=== PATIENT | female | born 1990 | race Caucasian/White ===

== ENCOUNTER 2023-01-28 12:33 | Outpatient (CLI) | payer MEDICAID, SELFPAY ==
--- NOTE | 2023-01-28 13:00 | CRLHL7_ITS ---
For Patients: As a result of the Century Cures Act, medical imaging exams and procedure reports are released immediately into your electronic medical record. You may view this report before your referring provider. If you have questions, please contact your health care provider. INDICATION: Evaluate anatomy. COMPARISON: 11/12/2022 TECHNIQUE: Real time ferraro scale imaging of the fetus was performed as well as color Doppler analysis of the umbilical vessels. FINDINGS: Sonographic imaging demonstrates a single living intrauterine gestation. Fetus demonstrates a regular cardiac rate of 142 beats per minute. Fetus has a variable position. The placenta lies posteriorly without evidence of placenta previa. The edge of the placenta is located 3.0 cm from the internal cervical os. Amniotic fluid volume appears normal. Single deepest vertical pocket: 4.6 cm. The cervix is closed and measures 4.0 cm in length. The composite ultrasound gestational age is calculated at 20 weeks 5 days with an estimated sonographic due date of 06/12/2023. The estimated weight is 367 grams which lies at the 48th %. The following biometric measurements were obtained: Biparietal diameter: 4.6 cm/19 weeks 6 days 21st% Head circumference: 17.5 cm/20 weeks 0 days 18th% Abdominal circumference: 15.8 cm/20 weeks 6 days 56th% Femur length: 3.4 cm/20 weeks 40 40th% The HC/AC ratio measures: 1.11 range (1.06-1.25) On anatomic survey, there is a normal appearance of the cerebral ventricles, cavum septi pellucidi, cisterna magna and cerebellum. The nose, lips, and facial profile appear normal. The cervical, thoracic and lumbar spine are well visualized and appear normal. Incomplete visualization of the heart structures due to position. The diaphragm and stomach appear normal. The kidneys and bladder also appear normal. There is a normal three-vessel cord and cord insertion site. The four extremities appear normal. IMPRESSION: Concordance of clinical and sonographic dating. Incomplete visualization of the cardiac structures due to position. Remainder of the anatomic survey is normal. Short-term follow-up recommended. Dictated by Romain Weldon MD @ 01/28/2023 2:45:22 PM (Electronically Signed)
== END 2023-01-28 12:34 | disposition home or self-care (01) ==
LOC: US 12:34
PROVIDERS: Visit Provider Registered Nurse
DX: Z34.92 Encounter for supervision of normal pregnancy, unspecified, second trimester (principal); Z3A.20 20 weeks gestation of pregnancy
CPT/HCPCS: 76805

== ENCOUNTER 2023-02-23 08:59 | Outpatient (CLI) | payer MEDICAID, SELFPAY ==
--- NOTE | 2023-02-23 09:15 | CRLHL7_ITS ---
For Patients: As a result of the Century Cures Act, medical imaging exams and procedure reports are released immediately into your electronic medical record. You may view this report before your referring provider. If you have questions, please contact your health care provider. INDICATION: Follow-up heart views COMPARISON: 01/28/2023 TECHNIQUE: Real time ferraro scale imaging of the fetus was performed. FINDINGS: Sonographic imaging demonstrates a single living intrauterine gestation. Fetus demonstrates a regular cardiac rate of 161 beats per minute. Fetus has a breech position. The placenta lies posteriorly. Amniotic fluid volume appears normal. Single deepest vertical pocket: 6.7 cm. There is a normal four-chamber heart view and the left and right ventricular outflow tracts appear normal. IMPRESSION: Normal heart views. Dictated by Romain Weldon MD @ 02/23/2023 10:30:12 AM (Electronically Signed)
== END 2023-02-23 09:00 | disposition home or self-care (01) ==
PROVIDERS: Visit Provider Obstetrics & Gynecology
DX: O35.BXX0 Maternal care for other (suspected) fetal abnormality and damage, fetal cardiac anomalies, not applicable or unspecified (principal)
CPT/HCPCS: 76816

== ENCOUNTER 2023-03-23 09:16 | Outpatient (CLI) | payer MEDICAID, SELFPAY | END 2023-03-23 09:17 | disposition home or self-care (01) | PROVIDERS: Visit Provider Obstetrics & Gynecology | DX: Z34.90 Encounter for supervision of normal pregnancy, unspecified, unspecified trimester (principal) | CPT/HCPCS: 86592 ==

== ENCOUNTER 2023-05-04 09:43 | Outpatient (CLI) | payer MEDICAID, SELFPAY | END 2023-05-04 09:44 | disposition home or self-care (01) | LOC: NFLDREF 05-05 11:36 | PROVIDERS: Visit Provider Obstetrics & Gynecology | DX: Z34.90 Encounter for supervision of normal pregnancy, unspecified, unspecified trimester (principal) | CPT/HCPCS: 82728 ==

== ENCOUNTER 2023-05-16 09:16 | Outpatient (CLI) | payer MEDICAID, SELFPAY | END 2023-05-16 09:17 | disposition home or self-care (01) | LOC: NFLDREF 05-18 07:28 | PROVIDERS: Visit Provider Obstetrics & Gynecology | DX: Z34.92 Encounter for supervision of normal pregnancy, unspecified, second trimester (principal) | CPT/HCPCS: 87081; 87653 ==

== ENCOUNTER 2023-06-05 23:44 | Outpatient (CLI) | payer MEDICAID, SELFPAY ==
[2023-06-06 00:10] VITALS: BP 113/57; PULSE 91; RESP 18; TEMP 36.7
[2023-06-06 00:47] LABS: Appearance Urine Clear (Clear); Bilirubin Urine Negative (Negative); Blood Urine Negative (Negative); Color Urine Yellow (Yellow); Glucose Urine Trace (Negative); Ketones Urine Negative (Negative); Leukocyte Esterase Urine Negative (Negative); Nitrite Urine Negative (Negative); Protein Urine Negative (Negative); Specific Gravity Urine 1.015 (1.000-1.030); Urobilinogen Urine 0.2 (0.2-1.0); pH Urine 6.5 (5.0-8.5)
[2023-06-06 00:50] LABS: Clue Cells No Clue Cells Seen (None Seen); Trichomonas No Trichomonas Seen (None Seen); Yeast No Yeast Seen (None Seen)
--- NOTE | 2023-06-06 19:55 | PC.OBNST ---
NST Note NST Note Start: 06/06/23 01:23 Freq: Status: Active Protocol: Document 06/06/23 01:23 RAFAELA (Rec: 06/06/23 01: RAFAELA [id number]) NST Note 4 Para (# of births) 2 EDC 06/13/23 Gestational Age In Weeks & Days 39 Weeks & 0 Days Patient Presented with Complaint(s) of Contractions/cramping Reactive Yes RN Yony Garcia, RN Date 06/06/23 Reactive Yes RN Catherine Leos RN Date 06/13/23 OB NST charge Yes Complete NST Note via Write Note Yes The provider's electronic signature indicates the NST is reactive/appropriate for gestational age. *Note to provider: If an addendum is required, open the patient's chart and click on the note under the Nurse/Allied Health tab.
== END 2023-06-06 00:54 | disposition home or self-care (01) ==
LOC: OB OUT 23:46 → OB 23:46
PROVIDERS: Visit Provider Obstetrics & Gynecology
DX: O47.1 False labor at or after 37 completed weeks of gestation (principal); Z3A.38 38 weeks gestation of pregnancy
CPT/HCPCS: 59025; 81003; 87210; 99213

== ENCOUNTER 2023-06-08 23:17 | Inpatient (IN) | payer MEDICAID, SELFPAY ==
[2023-06-08] MEDS: AMPICILLIN 2 GM in 0.9 % SODIUM CHLORIDE Mini-bag 100 ML IVPB (23:21)
[2023-06-08] MEDS: LACTATED RINGERS 1000 ML 1,000 ML 900 ML IV (23:22)
[2023-06-08 23:33] VITALS: BP 137/82; PULSE 97
[2023-06-08 23:42] VITALS: BMI 26.6
--- NOTE | 2023-06-08 23:49 | P.OBHP_ITS ---
OB - H&P: HPI Labor/Induction History of Present Illness Time Seen by Provider: 23:49 Date Seen: 06/08/23 Chief Complaint: The patient is a 32 year old 4 para 2 at 39 weeks gestation by LMP, who presents with spontaneous onset of labor. course is complicated by gestational anemia. Patient notes onset of regular/painful uterine contractions at 2100. At present, they are occurring every few minutes and rated as 10 in severity. She was seen i n the clinic this afternoon, found to be 3/80/0 and is status post membrane sweeping. She denies any vaginal bleeding or leaking of fluid. Endorses active movement. She is otherwise feeling well, ROS negative. Chief complaint: maternity Narrative: Chong Brooks is a 32 year old female Specific Issues/Plans [id number] : Gil. Sons: Aaron Hobbs. Baby: Boy. 1. Hx abnormal paps. Ascus and HPV- in 2012, 2018, ASCUS and HPV+ 2016, NIL and HPV+ 2017, NIL HPV-2020 Colposcopy CIN1 11/2017, Benign 06/2019 Needs pap PP 2. Hx migraines. Denies migraines in but has had increase in headaches. 3. Rubella non-immune Recommend vaccine pp 4. Anemia, with Hb 10.7 at 28 weeks. * Begin supplemental iron QOD * Repeat Hbg 34 weeks 05/04/23: 10.7 * Reported that she was often forgetting to take her iron supplement on 05/04/23. COVID: Declined Flu: Declined TDAP: Declined RSV: Declined 32wk mental health: No acute concerns H&P: Dr. Shi on 05/23/2023 History of Present Dating criteria: based on LMP care: good care Ultrasounds: normal 1st trimester US and normal mid trimester US Labs Blood type: B (+) positive Meds Home Medications and Allergies Home Medications Medication Instructions Recorded Confirmed Type prenat.vits,vahe,srq-nwqk-aaqyf 1 tab PO QDAY 11/12/22 06/08/23 History calcium carbonate 200 mg calcium 200 mg PO BID 03/23/23 06/08/23 History (500 mg) chewable tablet (Tums) ferrous sulfate 325 mg (65 mg 325 mg PO Q OTHER DAY 04/20/23 06/08/23 History iron) tablet (iron) Allergies Allergy/AdvReac Type Severity Reaction Status Date / Time No Known Drug Allergies Allergy Verified 06/08/23 23:23 OB - H&P: Exam Physical Exam: Vital signs: Pulse BP 97 137/82 06/08/23 23:33 06/08/23 23:33 Narrative: Physical exam: General: No acute distress Psych: Alert and oriented x3, full affect. Abdomen: Gravid. Otherwise soft and nontender. EFW 3500g. heart rate: Reactive NST. Baseline of 140 beats per minute, moderate variability, accelerations present, decelerations absent. Cervix: 5-6cm by RN report Presentation: Cephalic by Alfredo[facility] OB - Problem Based A/P Additional Plan (1) 39 weeks gestation of : Status: Acute (2) Anemia affecting : Status: Acute Plan Ms. Brooks is a 32yo at 39w2d GA admitted for spontaneous onset of labor. course complicated by gestational anemia and GBS positivity. - Admit to labor and deliver, proceed with expectant management at this time but could augment following adequate treatment of GBS - Start ampicillin for GBS prophylaxis - Blood type B positive - Repeat hemoglobin and type and screen on admission given gestational anemia with suboptimal compliance on iron
[2023-06-09] VITALS (58 sets, daily range): BP systolic 106–148; BP diastolic 53–88; PULSE 70–146; RESP 16–18; TEMP 36.6–37.3; O2SAT 97–100
[2023-06-09] MEDS: LIDOCAINE 2% (PF) 5 ML VIAL EPIDURAL (00:17)
[2023-06-09] MEDS: ROPIVACAINE 0.2% 100 ml 100 ML 12 MG EPIDURAL (00:17)
[2023-06-09] MEDS: ROPIVACAINE 0.2 % PF 10 ML INJ 20 MG EPIDURAL (00:17)
--- NOTE | 2023-06-09 00:29 | P.ANBPRC_ITS ---
[facility] Medical History Migraines ?G43.909 - Migraine, unspecified, not intractable, without status migrainosus (ICD-10) History of miscarriage (08/2019) ?Z87.59 - Personal history of other complications of , childbirth and the puerperium (ICD-10) History of vaginal delivery History of abnormal cervical Pap smear ?Z87.42 - Personal history of other diseases of the female genital tract (ICD-10) Surgical History History of umbilical hernia repair ?Z98.890 - Other specified postprocedural states (ICD-10) ?Z87.19 - Personal history of other diseases of the digestive system (ICD-10) History of placement of ear tubes ?Z96.22 - Myringotomy tube(s) status (ICD-10) History of colposcopy (11/21/17) ?Z98.890 - Other specified postprocedural states (ICD-10) Family History Mother Breast cancer Skin cancer Thyroid cancer Brother Diabetes Drug dependence Sister Gestational diabetes Preeclampsia Other Family history of breast cancer in first degree relative Social History What is your current living situation?: I presently have a place to live Problems where you live: no known problems In the past 12 months, utilities in danger of being shut off: no In past 12 months, lack of transportation kept you from medical appts, meetings, work, or getting things needed for daily living: no In the past 12 mos, have been you worried that your food would run out before you had money to buy more?: never true In the past 12 mos, the food you bought just didn't last and you didn't have money to buy more?: never true Physical activity type: walking and bicycling How many days of moderate to strenuous exercise, like a brisk walk, did you do in the last 7 days: 4 Smoking Status: Never smoker Second hand tobacco smoke exposure: Yes (as a child only) Non-prescribed substance use: denies use Caffeine: Yes (occasional) How often does anyone, including family, friends and others, physically hurt you : never How often does anyone, including family, friends and others, insult or talk down to you: never How often does anyone, including family, friends and others, threaten you with harm: never How often does anyone, including family, friends and others, scream or curse at you: never Little interest or pleasure in doing things: not at all Feeling down, depressed, or hopeless: not at all Meds Home Medications and Allergies Home Medications Medication Instructions Recorded Confirmed Type prenat.vits,vahe,bus-penj-uadol 1 tab PO QDAY 11/12/22 06/08/23 History calcium carbonate 200 mg calcium 200 mg PO BID 03/23/23 06/08/23 History (500 mg) chewable tablet (Tums) ferrous sulfate 325 mg (65 mg 325 mg PO Q OTHER DAY 04/20/23 06/08/23 History iron) tablet (iron) Allergies Allergy/AdvReac Type Severity Reaction Status Date / Time No Known Drug Allergies Allergy Verified 06/08/23 23:23 Results Vital Signs Vital Signs: Last Vital Signs Pulse 111 H 06/09/23 00:28 BP 126/73 06/09/23 00:28 Pulse Ox 100 06/09/23 00:27 Weight: 65.998 kg Height: 157.48 cm Anesthesia Procedures Epidural Insertion Patient Location: OB Start Time: 23:45 Stop Time: 00:29 Start Date: 06/09/23 Stop Date: 06/09/23 Reason for Block: procedure for pain Patient Position: sitting Performed By: Ever Valentine Preanesthetic Checklist: IV checked, risks and benefits discussed, surgical consent, monitors and equipment checked, pre-op evaluation, timeout performed and anesthesia consent Prep: chlorhexidine gluconate Monitoring: blood pressure monitoring, continuous pulse oximetry and heart rate Approach: midline Vertebral Space: lumbar (1-5) Epidural Technique: MARIA ELENA air Needle Type: Tuohy needle Injection Technique: continuous catheter Needle gauge: 17 Needle Length (cm): 10 cm Needle Insertion Depth (cm): 6 Catheter Gauge: 19 Catheter Type: multi-orifice Catheter at skin depth (cm): 12 Test Dose Result: negative and lidocaine 1.5% with epinephrine 1 to 200,000
[2023-06-09] MEDS: LACTATED RINGERS 1000 ML 1,000 ML 125 ML IV (00:59)
[2023-06-09] MEDS: AMPICILLIN 1 GM in 0.9 % SODIUM CHLORIDE Mini-bag 100 ML IVPB (03:13)
--- NOTE | 2023-06-09 03:44 | PM.OBPNL ---
Subjective Time Seen by Provider: 03:44 Date Seen: 06/09/23 Narrative: Ms. Brooks is a 32yo at 39w3d GA who presented in spontaneous labor. course complicated by gestational anemia and GBS positivity. She is now adequately treated with ampicillin. She has made progress from 5-6cm to 890/0 by RN report. S/p epidural placement and has been resting comfortably. Interested in amniotomy to augment labor. Objective Exam: General: Alert and oriented, in no acute distress Cervix: /0 FHR: Category 1, baseline 140bpm with moderate variability and no decelerations Vital Signs: Last Vital Signs Pulse 97 06/09/23 03:31 BP 129/78 06/09/23 03:31 Pulse Ox 100 06/09/23 00:27 Plan Plan: Ms. Brooks is a 32yo admitted for JESSIKA. was complicated by anemia and GBS positivity. - After discussion of risks, benefits and alternatives, AROM performed for return of clear fluid - Anticipate next exam in 2-4 hours, sooner as clinically indicated - On review of EMR, previous Hgb/T&S has yet to be drawn - will notify phlebotomy to request these - BT B+ - Continue ampicillin for GBS, now adequately treated
[2023-06-09 04:25] LABS: HGB WITH REFLEX TO FERRITIN 11.3 (12.0-16.0)
[2023-06-09] MEDS: OXYTOCIN 30 unit/500 ML in NS 30 UNIT/500 ML BAG 300 UNIT IVPB (05:03)
[2023-06-09] MEDS: lidocaine HCL 2 % JELLY (TOP) STERILE 6 ML TOPICAL (05:13)
[2023-06-09] MEDS: LIDOCAINE 1 % PF 30 ML INJECTION (05:14)
[2023-06-09] MEDS: miSOPROStoL 800 MCG/4 TABLET PR (05:36)
--- NOTE | 2023-06-09 05:55 | W.PM.VAGDEL1 ---
Procedure Delivery date: 06/09/23 Procedure Done: Global Procedure Details: Normal spontaneous vaginal delivery First degree perineal repair Intrapartal Events: Labor Augmentation Delivery augmentation: rupture of membranes Delivery monitor: external FHT Route of delivery: Laceration description: Perineal - 1st Degree Delivery repair: Vicryl Estimated blood loss (mL): 392 Anesthesia type: Epidural (1% lidocaine 8mL prior to repair) Disposition: floor Complications: None Narrative: Ms. Brooks is a 32yo at 39w3d GA admitted for spontaneous onset of labor.? heart tones on admission were category 1. Her was otherwise complicated by anemia and GBS positivity. Her labor was managed expectantly until adequate treatment of GBS was achieved. It was then augmented with AROM with return of clear fluid. Epidural was utilized for pain management. heart tones during active labor were category 1 and 2 with intermittent variable decelerations. She was complete at 0448 and expulsive efforts began. She had an at 0500. Baby delivered OA, restituted WILLEM and the anterior and posterior shoulders delivered without difficulty. The cord was clamped and cut after delayed cord clamping. Active management of the third stage was initiated with pitocin and gentle traction on the umbilical cord, and the placenta delivered spontaneous and intact at 0508. Cord gases sent: no Cord blood sent for ABO: no Perineum and vagina were inspected, and the following lacerations were noted: first degree perineal laceration with very shallow extension down posterior perineum. Repair was performed in the usual fashion with 3-0 vicryl under existing epidural analgesia and with 1% lidocaine. Mild intermittent lower uterine segment atony was noted during repair, which improved with fundal massage. At completion of repair, bimanual massage was conducted and a small volume of clots was swept from the lower uterine segment. Entire vagina and cervix were examined with no additional repair. Prophylactic cytotec 800mcg was administered rectally. Excellent tone and hemostasis was again affirmed. Total QBL was 392mL. All counts were correct. Mother and infant in stable condition following the .? [place] Infant Gender: Male presentation: vertex Placental Delivery Description: Spontaneous Cord Description: 3 Vessels total score - 1 minute: 8 total score - 5 minute: 9
[2023-06-09 07:06] LABS: Hematocrit 35.4 % (33.0-51.0); Hemoglobin* 11.6 gm/dL (12.0-16.0); Mean Corpuscular HGB Conc 33 gm/dL (32-36); Mean Corpuscular Hemoglobin 27 pg (26-34); Mean Corpuscular Volume 82 fL (80-100); Platelet Count* 128 K/uL (140-440); White Blood Count* 15.08 K/uL (4.50-11.00)
[2023-06-09] MEDS: IBUPROFEN 600 MG TABLET PO ×3 (07:14→19:05)
[2023-06-09 07:16] LABS: Alanine Aminotransferase* 14 U/L (4-35); Aspartate Amino Transferase* 24 U/L (12-35); Blood Urea Nitrogen* 7 mg/dL (5-24); Creatinine* 0.5 mg/dL (0.5-1.5); Est. Creatinine Clearance* 128.94; Estimated Glomerular Filt Rate 129 ml/min
[2023-06-09 07:34] LABS: Slide Review Reflex No
[2023-06-09] MEDS: ACETAMINOPHEN 500 MG TABLET 1000 MG PO ×3 (09:54→22:37)
[2023-06-09] MEDS: FERROUS SULFATE 325 MG TABLET PO (09:54)
[2023-06-09] MEDS: DOCUSATE SODIUM 100 MG CAPSULE PO (09:54)
[2023-06-10] MEDS: IBUPROFEN 600 MG TABLET PO ×2 (02:20→07:59)
[2023-06-10 05:00] VITALS: BP 133/84; PULSE 85; RESP 18; TEMP 36.8; O2SAT 97
[2023-06-10] MEDS: ACETAMINOPHEN 500 MG TABLET 1000 MG PO ×2 (05:03→11:08)
[2023-06-10 06:41] LABS: Hemoglobin* 11.2 gm/dL (12.0-16.0)
[2023-06-10 07:42] VITALS: BP 138/88; PULSE 80; RESP 18; TEMP 36.8; O2SAT 97
[2023-06-10] MEDS: FERROUS SULFATE 325 MG TABLET PO (07:59)
[2023-06-10] MEDS: DOCUSATE SODIUM 100 MG CAPSULE PO (08:00)
[2023-06-10 08:40] VITALS: BP 136/88; PULSE 82; RESP 18; O2SAT 98
--- NOTE | 2023-06-10 08:52 | PM.OBDSVD1 ---
DS: Providers Provider Date Seen: 06/10/23 Date of admission: 06/08/23 23:17 Primary care physician: Not a Local Provider Admitting Clinician: Shea Carver MD Attending Physician on discharge: Roni Oliveira CNM Date of Discharge: 06/10/23 DS: Diagnosis Discharge Diagnosis (1) care and examination immediately after delivery: Status: Acute (2) Lactating mother: Status: Acute (3) Gestational hypertension: Status: Acute Exam Narrative: Exam Narrative: GENERAL APPEARANCE: ?normal affect, alert, no distress MOOD: ?appropriate HEENT: normocephalic, neck supple, full ROM CHEST: ?Symmetrical chest wall movement. ?Normal respiratory effort. ?Clear to auscultation HEART: ?regular rate and rhythm ABDOMEN: ?soft, non-tender. Uterine fundus is firm, at Umbilicus, Midline and is appropriate for the stage of recovery. ?Bowel sounds present. PERINEUM: ?mild edema of the perineum, there is a 1st degree laceration that is healing well. EXTREMITIES: ?normal and no edema Const: Vital Signs, click to edit/add: Vital Signs - 24 hr 06/09/23 10:35 06/09/23 15:16 06/09/23 20:16 Temperature 97.8 F 97.9 F 97.9 F Pulse Rate [Pulse Oximeter] 84 70 87 Respiratory Rate 16 16 18 Blood Pressure [Ri ght Arm] 136/88 139/81 125/78 Pulse Oximetry 97 97 98 Oxygen Delivery Me thod Room Air Room Air 06/09/23 23:08 06/10/23 05:00 06/10/23 07:42 Temperature 98.0 F 98.2 F 98.2 F Pulse Rate [Pulse Oximeter] 82 85 80 Respiratory Rate 18 18 18 Blood Pressure [Ri ght Arm] 136/81 133/84 138/88 Pulse Oximetry 97 97 97 Oxygen Delivery Me thod Room Air Room Air 06/10/23 08:40 Temperature Pulse Rate [Pulse Oximeter] 82 Respiratory Rate 18 Blood Pressure [Ri ght Arm] 136/88 Pulse Oximetry 98 Oxygen Delivery Me thod Room Air Documenting provider has reviewed patient's vital signs: yes OB - DS: Summary Hospital Course Hospital Course: Chong is a 32 y.o. who was admitted to [facility] for spontaneous labor. ?She had an uncomplicated NVD. During labor she was diagnosed with Gestational ?The patient feels well. ?The pain is well controlled with current medications. ?She has no new complaints. ?She is breast feeding and reports things are going well.? the patient has done well.? Vitals have been stable.?She was diagnosed with gestational hypertension during this stay, blood pressures since delivery have been stable. She has remained afebrile.? Has a good appetite, is tolerating a general diet. ?She is voiding without difficulty.? She is passing gas and has not had a bowel movement.? She is ambulating and denies any dizziness.? Has Small amount of rubra lochia. ?She is planning partner vasectomy for prevention. Peripartum Data Infant delivery method: Vaginal Laceration description: Perineal - 1st Degree complications: none [place] Gender: Male Discharge Plan: Home Status at Discharge Functional status at discharge: independent ambulation Overall status at discharge: patient is progressing back to baseline Time Spent with Patient Time attestation: Total time spent providing and/or coordinating discharge services: Time spent: Less than 30 minutes Discharge Plan Discharge Disposition: Home, Self-Care Date of Admission: 06/08/23 23:17 Attending Provider on Discharge: Roni Oliveira Primary Care Provider: Provider,Not a Local Condition: Stable Anticipated Discharge Date/Time: 06/10/23 12:00 Discharge Medications: New acetaminophen 500 mg Tablet 1,000 mg PO Q6H PRNQty: 0 0RF docusate sodium 100 mg Capsule 100 mg PO DAILY Qty: 60 2RF ibuprofen 600 mg Tablet 600 mg PO Q6H PRNQty: 90 0RF Continued calcium carbonate [Tums] 200 mg calcium (500 mg) tablet,chewable 200 mg PO BID prenat.vits,vahe,pme-vpup-xsynu Tablet 1 tab PO QDAY ferrous sulfate [iron] 325 mg (65 mg iron) tablet 325 mg PO Q OTHER DAY Discharge Orders: Discharge Order (Routine); Ordered 06/10/23 Ordered By: Roni Oliveira Patient Education: OB Over the Counter Medication Information, OB Vaginal/Breast Feeding Additional Instructions: Discharge instructions were reviewed with the patient including signs and symptoms of infection and home going medications Nothing vaginally for 6 weeks: no tampons or intercourse Do not drive while taking narcotic pain medication(s) Off Work or School for 6 weeks [facility] for a BP check?06/14/22 Call with BP greater than or equal to 160/110 2-week visit: discuss infant feeding concerns, review control options and screen for anxiety/depression. 6-week visit for an annual exam. consultation services are available to all mothers and babies for the first year after delivery.? To make an appointment, please call [phone]. Activity Level: Activity as Tolerated Discharge Diet: Regular Follow Up Appointments: Provider,Not a Local [Primary Care Provider] - [facility] [Provider Group] Forms: [employer] Info Instructions
--- NOTE | 2023-06-10 09:10 | PC.NURSE ---
Patient non-immune for rubella, MMR vaccine indicated per protocol. Patient verbalized that she is declining the MMR vaccine as she reports that she is sensitive and has reactions to vaccine. Vaccine not given per patient declination.
== END 2023-06-10 11:15 | disposition home or self-care (01) | DRG 807 ==
LOC: OB OUT 23:17 → OB 06-10 08:54
PROVIDERS: Admitting Provider Obstetrics & Gynecology; Visit Provider Obstetrics & Gynecology
DX: O99.02 Anemia complicating childbirth (principal); Z37.0 Single live birth; O13.4 Gestational [pregnancy-induced] hypertension without significant proteinuria, complicating childbirth; O70.0 First degree perineal laceration during delivery; D64.9 Anemia, unspecified; O99.824 Streptococcus B carrier state complicating childbirth; Z3A.39 39 weeks gestation of pregnancy
CPT/HCPCS: 01967; 36415; 82565; 84450; 84460; 84520; 85018; 85027; 86850; 86900; 86901; 99213; G0463; A9270; J0290; J2001; J2371; J2795; J7120

== ENCOUNTER 2024-04-05 13:45 | Outpatient (CLI) | payer MEDICAID, SELFPAY ==
[2024-04-08 05:28] LABS: HPV Source Cervix; HPV, High Risk by TMA Not Detected
== END 2024-04-05 13:46 | disposition home or self-care (01) ==
PROVIDERS: Visit Provider Physician Assistant
DX: Z01.419 Encounter for gynecological examination (general) (routine) without abnormal findings (principal); Z12.4 Encounter for screening for malignant neoplasm of cervix
CPT/HCPCS: 87624; 87625; 88141; 88142

== ENCOUNTER 2024-05-24 09:02 | Outpatient (CLI) | payer MEDICAID, SELFPAY ==
--- NOTE | 2024-05-24 09:00 | CRLHL7_ITS ---
For Patients: As a result of the Cures Act, medical imaging exams and procedure reports are released immediately into your electronic medical record. You may view this report before your referring provider. If you have questions, please contact your health care provider. Indication: CHRONIC SINUSITIS Technique: Performed without IV contrast Comparison: None available Findings: Frontal sinuses: Mild mucosal thickening within the right frontal sinus. The left frontal sinuses incompletely developed. Ethmoid sinuses: Mild mucosal thickening bilaterally, [id number]-right. Maxillary sinuses: Complete opacification of the left maxillary sinus. Mild mucosal thickening with small mucous retention cysts measuring up to 7 millimeters within the right maxillary sinus. The maxillary sinus drainage pathways are obstructed on the left and patent on the right. Sphenoid sinuses: Clear, including both sphenoethmoidal recesses. Nasal Cavity: Leftward curvature nasal septum with broad-based left-sided nasal septal spur. 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 No TMJ abnormalities identified. The visualized portions of the orbits, intracranial contents and upper soft tissue neck are grossly negative. Incidental calcification associated with the left posterior tentorium. Cerumen present in the right external auditory canal. Impression: 1. Severe left maxillary sinus disease with obstruction of the sinus drainage pathway. 2. Leftward nasal septal deviation with left-sided nasal septal spur. Please note that all CT scans at this facility use dose modulation, iterative reconstruction, and/or weight-based dosing when appropriate to reduce radiation dose to as low as reasonably achievable. Dictated by Romain Weldon MD @ 05/25/2024 1:21:57 PM (Electronically Signed)
== END 2024-05-24 09:03 | disposition home or self-care (01) ==
LOC: CT 09:03
PROVIDERS: Visit Provider Otolaryngology
DX: J32.9 Chronic sinusitis, unspecified (principal); J32.0 Chronic maxillary sinusitis; J34.2 Deviated nasal septum
CPT/HCPCS: 70486

== ENCOUNTER 2024-07-13 08:05 | Day surgery (SDC) | payer MEDICAID, SELFPAY ==
[2024-07-13] VITALS (14 sets, daily range): BP systolic 117–136; BP diastolic 66–86; PULSE 76–95; RESP 13–23; TEMP 36.3–36.6; O2SAT 95–100; BMI 20.1
--- OUTSIDE RECORDS SUMMARY | 2024-07-13 08:10 | XMS_ITS | Clinical Summary ---
Author Organization [facility] Address [place], [place] [address] Care Team Providers Care Target Setter Name Role Phone Claribel MolecularMD Primary Care Provider [phone] Allergies No known active allergies Medications Wdhpiwuc-Az-Euk- Fe-FA ( VITAMIN) tab tablet Take 1 tablet by mouth once daily. 0 01/31/2017 Active Active Problems Problem Noted Date Diagnosed Date ASCUS with positive high risk HPV cervical 02/11 Overview (07/13/2019): 08/17/2012 ASCUS/HPV Negative 04/05/2016 NIL 02/17/2017 ASCUS/HPV+ 10/11/2017 NIL/HPV+ 11/21/2017 [place]: MILLER I, ECC MILLER I 11/22/2018 ASCUS/HPV Negative 07/10/2019 [place] Cervicitis Plan: Pap/HPV due 06/2019 Family history of breast cancer in first degree relative 11/11/2014 Overview (07/10/2019): Overview: Mother at age 57 Scheduled immunizations not up to date 5 Overview (07/10/2019): Overview: Parents and now patient decline all immunizations Migraine without aura and responsive to treatmen t 11/11/2014 Overview (08/20/2020): Better since stopping BC. Occurs occasionally - frequency once per month around menses. Had been once weekly on the pill. Resolved Problems Problem Noted Date Diagnosed Date Resolved Date Lactating mother 11/22/2018 09/11/2019 Cervical high risk HPV (yordy n papillomavirus) test positive 10/11/2017 11/22/2018 Normal labor 08/28/2017 11/22/2018 Encounter for supervision pr egnancy in primigravida, antepartum 07/26/2017 11/22/2018 Rubella non-immune status, antepartum 06/22/2017 11/22/2018 Common migraine 11/11/2014 08/20/2020 Overview (07/10/2019): Overview: Better since stopping BC. Occurs occasionally - frequency once per month around menses. Had been once weekly on the pill. Immunizations Name Administration Dates Next Due MMR 08/29/2017(Deferred: - VIS given ) Family History Medical History Relation Name Comments Other Brother drug overdose Hypertension Father Unknown Maternal Grandfather Brain cancer Maternal Grandmother Cancer-breast Mother Skin cancer Mother Thyroid cancer Mother Diabetes Paternal Grandfather Heart Disease Paternal Grandmother Hypertension Sister Relation Name Status Comments Brother Father Alive Maternal Grandfather Maternal Grandmother Mother Alive Paternal Grandfather Alive Paternal Grandmother Alive Sister Alive Social History Tobacco Use Types Packs/Day Years Used Date Smoking Tobacco: Never Smokeless Tobacco: Never Alcohol Use Standard Drinks/Week Comments Yes 0 (1 standard drink = 0.6 oz pur e alcohol) PHQ-2 Answer Date Recorded PHQ-2 TOTAL SCORE 0 08/20/2020 Social Connections Answer Date Recorded Frequency of Communication with Friends and Fami ly Not on file 06/13/2021 Financial Resource Strain Answer Date R ecorded Difficulty of Paying Living Expenses Not on file 06/13/2021 Difficulty of Paying Living Expenses Not on file 06/13/2021 Comments Unknown Sex and Gender Information Value Date Recorded Sex Assigned at Not on file Legal Sex Female 6:51 AM APPLICATIONS PROGRAMMER ANALYST Gender Identity Not on file Sexual Orientation Not on file Obstetrics History Para Term AB IAB SAB Ectopic Multiple Livin g Live Births 2 1 1 1 1 Date Outcome GA Total Labor Labor/2nd/3rd Weight Sex Type Anes PTL Sophy A1 A5 Name Clin 2017 Term 39w 1d 3.54 kg (7 lb 12.9 oz) M Aissatou Epidur al Livin g 8 8 Tosin as Delivery Location:[facility]) Last Filed Vital Signs Vital Sign Reading Time Taken Comments Blood Pressure 118/82 08/20/2020 8:45 AM APPLICATIONS PROGRAMMER ANALYST Pulse 84 08/20/2020 8:45 AM APPLICATIONS PROGRAMMER ANALYST Temperature 36.9 C (98.4 F) 09/07/2019 11:41 PM CDT Respiratory Rate 16 09/07/2019 11:41 PM CDT Oxygen Saturation 98% 09/08/2019 1:15 AM CDT Inhaled Oxygen Concentration - - Weight 51.3 kg (113 lb) 08/20/2020 8:45 AM APPLICATIONS PROGRAMMER ANALYST Height 157.5 cm (5' 2) 08/20/2020 8:45 AM APPLICATIONS PROGRAMMER ANALYST Body Mass Index 20.67 08/20/2020 8:45 AM APPLICATIONS PROGRAMMER ANALYST Plan of Treatment Upcoming Encounters Date Type Department Care Team (Late st Contact Info) Description 07/30/2024 7:40 AM APPLICATIONS PROGRAMMER ANALYST Office Visit [facility] [address] [place] [address] BrentwoodGil MD [address] [facility] [address] [place], [place] [phone] Health Maintenance Due Date Last Done Comments Tdap 10/17/2002 Hepatitis C screening for age 18-79 10/17/2009 Tetanus booster 2011 BMI (ht and wt on same day) for age 18+ 08/20/2021 08/20/2020, 09/11/2019, 07/10/2019, Additional history exists Depression screening for age 12+ 08/20/2021 08/20/2020, 11/22/2018, 10/11/2017, Additional history exists Pap test for age 21-65 10/24/2021 , 10/24/2020, 11/22/2018, Additional history exists COVID-19 vaccine series ( season) 2024 Influenza for age 9-49 02/12/2024 HIV for age 15-65 Completed 02/17/2017 Pneumococcal series for age 6-49 Aged Out No longer eligible based on patient's age to complete this topic Procedures Procedure Name Priority Date/Time Associated Diagnosis Comments YARN WASHER THIN PREP PAP SCREEN IMAGED Routine 10/24/2020 12:15 PM CDT ANTI HIV 1/2 Routine 02/17/2017 3:18 PM CDT Encounter for care of first , antepartum, first trimester from Last 3 Months or Most Recently Relevant to Health Maintenance Results * YARN WASHER THIN PREP PAP SCREEN IMAGED (10/24/2020 12:15 PM CDT) Case Report Gynecologic Cytology Report Case: [id number] Authorizing Provider: Corine Love PA-C Collected: 10/24/2020 1215 Ordering Location: [facility] Received: 10/27/2020 0920 First Screen: Roman Dodson Specimen: YARN WASHER ThinPrep Vial Screening, Cervical/Vaginal 11/04/2020 9:01 AM CDT [facility] INTERPRETATION/ RESULT NEGATIVE FOR INTRAEPITHELIAL LESION OR MALIGNANCY (NIL) (none) 11/04/2020 9:01 AM CDT [email or web address] IMEN ADEQUACY Satisfactory for evaluation Endocervical component present 11/04/2020 9:01 AM CDT [email or web address] HPV REQUEST HPV and PAP 11/04/2020 9:01 AM CDT [facility] ENTRAL [facility]ATORY Date of LMP 08/19/2020 11/04/2020 9:01 AM CDT [email or web address] Menstrual Status 11/04/2020 9:01 AM CDT [email or web address] Additional Information 11/04/2020 9:01 AM CDT [facility] Comment: Interpreted at [facility] - [address] [place] [address] Automated Review Successful 11/04/2020 9:01 AM CDT [email or web address] Comment:Specimen processed s uccessfully by automated noteman device, ThinPrep Imaging System, [employer] ANCILLARY TESTING YARN WASHER HPV Ordered, Please see separate report 11/04/2020 9:01 AM CDT [facility] ENTRAL LABORATORY Note The pap test is a screening technique, not a diagnostic procedure. It is used primarily to screen for squamous cancers and precursor lesions. Published studies have shown that it is subject to both false negative and false positive results. The pap test should not be used as the sole means to diagnose or exclude pre-malignant and malignant lesions. 11/04/2020 9:01 AM CDT [facility] ENTRAL LABORATORY Other (Cervical/Vagina l) 10/24/2020 12:15 PM CDT 10/27/2020 9:20 AM CDT September L Ivan RUDOLPH PATHOLOGY/CYTOLOGY Final R esult [facility] [address] [place] [address], [place] * ANTI HIV 1/2 (02/17/2017 3:18 PM CDT) HIV-1/HIV-2 ANTIBODY Non-Reacti ve Non-Reacti ve 02/17/2017 8:47 PM CDT [facility] TRAL LABORATORY Blood BLOOD SPECIMEN / Unknown Venipuncture / Unknown 02/17/2017 3:18 PM CDT 02/17/2017 3:18 PM CDT Narrative [facility] - 02/17/2017 8:47 PM CDT HIV-1 p24 and HIV-1/HIV-2 Ab not detected Flo Yeh CART DRIVER SEND OUTS Final Result [facility] [address] [place] [address], [place] from Last 3 Months or Most Recently Relevant to Health Maintenance Insurance [facility] Advance Directives * Full Code (Latest Code Status on File) Date Activated Date Inactivated Comments 08/28/2017 1:54 PM 08/30/2017 1:25 PM * Full Code Date Activated Date Inactivated Comments 08/28/2017 3:50 AM 08/28/2017 1:52 PM Care Teams Target Setter Relationship Specialty Start Date End Date [facility] [address] [facility] [place] [address] PCP - General 10/11/17
--- OUTSIDE RECORDS SUMMARY | 2024-07-13 08:11 | XMS_ITS | Encounter Summary ---
Author Organization [facility] Address [address] [place] [address] Care Team Providers Care Crisis Worker Name Role Phone Sha Jasso M.D. Primary Care Provider [phone] Reason for Referral * Outpatient (Routine) - Authorized Specialty Diagnoses / Procedures Referred By Shana wong Referred To Contact Family Medicine Sha Jasso M.D. [address] [place] [address] Phone: tel: fax: [facility] Referral ID Status Reason Start Date Expiration Date V isits Requested Visits Authorized [id number] Authorized 06/19/2024 12/19/2025 1 1 GATION ATTORNEY ASSOCIATE Encounter Details Date Type Department Care Team (Late st Contact Info) Description 06/19/2024 Orders Only [facility] MNT Sha Jasso M.D. [address] [place] [address] Social History Tobacco Use Types Packs/Day Years Used Date Smoking Tobacco: Never Passive Smoke Exposure: Never Smokeless Tobacco: Never PHQ-2 Answer Date Recorded PHQ-2 Score 0 05/24/2022 Depression Answer Date Recor ded PHQ-9 Total Score (max 27) 0 05/24 Dental Answer Date Recorded Dental: Regular Dentist Unknown 08/22/19 21 Comments No Sex and Gender Information Value Date Recorded Sex Assigned at Female 11/09/2022 8:39 AM CDT Legal Sex Female 7:57 AM LITIGATION ATTORNEY ASSOCIATE Gender Identity Female 11/09/2022 8:39 AM CDT Sexual Orientation Straight 11/09/2022 8: 39 AM CDT documented as of this encounter Plan of Treatment Scheduled Referrals Name Type Priority Associated Diagnoses Orde r Schedule Family Medicine office visit (clinic) Outpatient Referral Routine Expected: 07/03/2024, Expires: 12/16/2024 documented as of this encounter Visit Diagnoses Not on filedocumented in this encounter Additional Health Concerns Assessment Noted Time PHQ-9 Depression Total Score: 0 05/24/20 22 10:00 AM LITIGATION ATTORNEY ASSOCIATE documented as of this encounter Care Teams Crisis Worker Relationship Specialty Start Date End Date Sha Jasso M.D. [address] [place] [address] PCP - General 11/04/23 documented as of this encounter
--- OUTSIDE RECORDS SUMMARY | 2024-07-13 08:11 | XMS_ITS | Clinical Summary ---
Author Organization [facility] Address [address] [place] [address] Care Team Providers Care Statistical Analyst Name Role Phone Sha Jasso M.D. Primary Care Provider [phone] Source Comments Patient records contain information from all sites at [facility]. For routine questions regarding patient records, call [phone] during business hours, M-F 8:00 AM - 5:00 PM Central Time. Record requests for emergency care only can be directed to [phone] at any time.[facility] Allergies No known active allergies Medications ibuprofen (ADVIL,MOTRIN) 600 mg tablet Every 6 Hours as needed 05/19/2021 Active norethindrone (MICRONOR) 0.35 mg tablet Take 1 tablet by mouth daily. 06/30/2021 Active cefadroxil (Duricef) 500 mg capsuleIndicati ons:Mastitis Take 1 capsule (500 mg total) by mouth 2 (two) times a day for 10 days. 20 capsule 07/05/2024 5 Active Active Problems Problem Noted Date Diagnosed Date High Risk Human Papillomavir us Deoxyribonucleic Acid Test Positive Cervix 05/26/2020 Atypical Squamous Cells Undetermined Significanc e Cervix 02/11/2017 Overview (05/26/2020): 08/17/2012 ASCUS/HPV Negative 04/05/2016 NIL 02/17/2017 ASCUS/HPV+ 10/11/2017 NIL/HPV+ 11/21/2017 [place]: MILLER I, ECC MILLER I 11/22/2018 ASCUS/HPV Negative 07/10/2019 [place] Cervicitis Plan: Pap/HPV due 06/2019 Cancer Breast Family History 11/11/2014 Overview (05/26/2020): Mother at age 57 Migraine Without Aura Not In tractable Without Status Migrainosus 11/11/2014 Overview (05/26/2020): Better since stopping BC. Occurs occasionally - frequency once per month around menses. Had been once weekly on the pill. Underimmunization Status 11/11/2014 Overview (05/26/2020): Parents and now patient decline all immunizations Encounters Date Type Department Care Team Description 07/05/2024 5:54 PM STUDENT MINISTRY PASTOR - 07/05/2024 6:35 PM STUDENT MINISTRY PASTOR Emergency [place] [facility] [address] [place] [phone] Martha Mckeon, SANTINO, C.N.P., M.S.N. Mastitis (Primary Dx) Discharge Disposition: Home or Self Care 06/19/2024 Orders Only [facility] Sha Escobar M.D. from Last 3 Months Family History Medical History Relation Name Comments Drug overdose Brother Hypertension Father No Known Problems Maternal Grandfather Brain cancer Maternal Grandmother Breast cancer Mother Skin cancer Mother Thyroid cancer Mother Diabetes Paternal Grandfather Heart disease Paternal Grandmother Relation Name Status Comments Brother Father Alive Maternal Grandfather Maternal Grandmother Mother Alive Paternal Grandfather Paternal Grandmother Social History Tobacco Use Types Packs/Day Years Used Date Smoking Tobacco: Never Passive Smoke Exposure: Never Smokeless Tobacco: Never Tobacco Cessation:Counseling Given: Not Answered PHQ-2 Answer Date Recorded PHQ-2 Score 0 05/24/2022 Depression Answer Date Recor ded PHQ-9 Total Score (max 27) 0 05/24 Dental Answer Date Recorded Dental: Regular Dentist Unknown 08/22/19 21 Comments No Sex and Gender Information Value Date Recorded Sex Assigned at Female 11/09/2022 8:39 AM CDT Legal Sex Female 7:57 AM STUDENT MINISTRY PASTOR Gender Identity Female 11/09/2022 8:39 AM CDT Sexual Orientation Straight 11/09/2022 8: 39 AM CDT Last Filed Vital Signs Vital Sign Reading Time Taken Comments Blood Pressure 130/84 07/05/2024 5:47 PM STUDENT MINISTRY PASTOR Pulse 91 07/05/2024 5:47 PM STUDENT MINISTRY PASTOR Temperature 37.7 C (99.9 F) 07/05/2024 5:47 PM STUDENT MINISTRY PASTOR Respiratory Rate 18 07/05/2024 5:47 PM STUDENT MINISTRY PASTOR Oxygen Saturation 99% 07/05/2024 5:47 PM STUDENT MINISTRY PASTOR Inhaled Oxygen Concentration - - Weight 50.1 kg (110 lb 6.4 oz) 07/05/2024 5:45 P M STUDENT MINISTRY PASTOR Height 156.4 cm (5' 1.58) 05/31/2022 11:[address] Body Mass Index 20.47 05/31/2022 11:38 AM STUDENT MINISTRY PASTOR Plan of Treatment Health Maintenance Due Date Last Done Comments HIV Screening 1991 Hepatitis C Screening 1991 DTaP,Tdap,and Td Vaccines (1 - Tdap) 10/17/2010 Hepatitis B Vaccines (1 of 3 - 19+ 3-dose series) 10/17/2010 Cervical/Vaginal Cancer Screening 10/25/2023 021 COVID-19 Vaccine (1 - 2023-2 5 season) 2024 Influenza Vaccine (#1) 2024 Depression Screening (Annual PHQ-2) 06/13/2024 HPV Vaccines Aged Out No longer eligi ble based on patient's age to complete this topic IPV Vaccines Aged Out No longer eligi ble based on patient's age to complete this topic Pneumococcal vaccine (0-49 years) Aged Out No longer eligible based on patient's age to complete this topic Insurance ARE Care Teams Statistical Analyst Relationship Specialty Start Date End Date Sha Jasso M.D. [address] [place] [facility] [place] [phone] PCP - General 11/04/23
--- OUTSIDE RECORDS SUMMARY | 2024-07-13 08:11 | XMS_ITS | Encounter Summary ---
Author Organization [facility] Address [address] [place] [address] Care Team Providers Care Backhaul Driver Name Role Phone Sha Jasso M.D. Primary Care Provider [phone] Reason for Visit * Reason Comments Breast Pain Patient presents wit h complaints of left breast pain that started last night. She is nursing. She believes she has mastitis. She denies fevers but states the area has been warm and tender to the touch. Encounter Details Date Type Department Care Team (Late st Contact Info) Description 07/05/2024 5:54 PM LINECASTING MACHINE KEYBOARD OPERATOR - 07/05/2024 6:35 PM LINECASTING MACHINE KEYBOARD OPERATOR Emergency [place] [facility] [address] [place] [phone] Martha Mckeon, SANTINO, C.N.P., M.S.N. [address] [place] [phone] Mastitis (Primary Dx) Discharge Disposition: Home or Self Care Social History Tobacco Use Types Packs/Day Years [...] AM CDT Legal Sex Female 7:57 AM LINECASTING MACHINE KEYBOARD OPERATOR Gender Identity Female 11/09/2022 8:39 AM CDT Sexual Orientation Straight 11/09/2022 8: 39 AM CDT documented as of this encounter Last Filed Vital Signs Vital Sign Reading Time Taken Comments Blood Pressure 130/84 07/05/2024 5:47 PM LINECASTING MACHINE KEYBOARD OPERATOR Pulse 91 07/05/2024 5:47 PM LINECASTING MACHINE KEYBOARD OPERATOR Temperature 37.7 C (99.9 F) 07/05/2024 5:47 PM LINECASTING MACHINE KEYBOARD OPERATOR Respiratory Rate 18 07/05/2024 5:47 PM LINECASTING MACHINE KEYBOARD OPERATOR Oxygen Saturation 99% 07/05/2024 5:47 PM LINECASTING MACHINE KEYBOARD OPERATOR Inhaled Oxygen Concentration - - Weight 50.1 kg (110 lb 6.4 oz) 07/05/2024 5:45 P M LINECASTING MACHINE KEYBOARD OPERATOR Height - - Body Mass Index 20.47 05/31/2022 11:38 AM LINECASTING MACHINE KEYBOARD OPERATOR documented in this encounter Discharge Instructions * Attachments The following attachments cannot be sent through Care Everywhere. * Mastitis Lnia-ag-Stkr (Zimbabwean) documented in this encounter Medications at Time of Discharge cefadroxil (Duricef) 500 mg capsuleIndication s:Mastitis Take 1 capsule (500 mg total) by mouth 2 (two) times a day for 10 days. 20 capsule 07/05/2024 07/15/2024 ibuprofen (ADVIL,MOTRIN) 600 mg tablet Every 6 Hours as needed 05/19/2021 norethindrone (MICRONOR) 0.35 mg tablet Take 1 tablet by mouth daily. 06/30/2021 documented as of this encounter Progress Notes * Martha Mckeon, SANTINO, C.N.P., M.S.N. - 07/05/2024 6:23 PM CST Images from the original note were not included. SUBJECTIVE CHIEF COMPLAINT/REASON FOR VISIT Breast Pain (Patient presents with complaints of left breast pain that started last night. She is nursing. She believes she has mastitis. She denies fevers but states the area has been warm and tender to the touch. ). HISTORY OF PRESENT ILLNESS Chong Brooks is a 33 y.o. female who presents for evaluation of left breast pain, tenderness and redness that started last night in his progressively gotten worse. She has had some body aches, nofevers. No history of MRSA. Her baby is 1-year-old and continues to do some . She denies any cracked nipples. REVIEW OF SYSTEMS Review of Systems was negative except for that mentioned in the History of Present Illness. Social History Tobacco Use Smoking status: Never Passive exposure: Never Smokeless tobacco: Never The following portions of the chart were reviewed and updated: ???Allergies, current medications, family history, medical history, social history, and surgical history.?? OBJECTIVE VITAL SIGNS BP 130/84 (BP Location: Left arm;Upper, Patient Position: Lying) Pulse 91 Temp 37.7 ??C (Temporal) Resp 18 Wt 50.1 kg SpO2 99% Yes BMI 20.47 kg/m?? PHYSICAL EXAMINATION General: Patient is in no distress. Appropriately dressed and normal hygiene. HEENT: Normocephalic. Respiratory: Normal rise and fall of chest. No shortness of breath. Cardiac: No cyanosis. Chest Breasts: Left: Tenderness present. No inverted nipple or nipple discharge. Comments: Area of tenderness, swelling, and warm to the touch. No palpable discrete abscess. No discrete masses. Lymphadenopathy Upper Body: Left upper body: No supraclavicular or axillary adenopathy. Musculoskeletal: Grossly intact, no deformities. No neurovascular compromise. Skin: Good turgor. No rashes noted on exposed skin during exam. No cyanosis. Neurologic/Psychiatric: Alert, responds appropriately. No weakness or abnormality of gait. DIAGNOSTICS LABS: No results found for this or any previous visit (from the past 24 hours). ECG: IMAGING: No results found. ASSESSMENT / PLAN #1 Mastitis - cefadroxil (Duricef) 500 mg capsule; Take 1 capsule (500 mg total) by mouth 2 (two) times a day for 10 days., Starting Denise 07/05/2024, Until 07/15/2024, Normal Recommend starting cefadroxil 500 mg twice daily for 7-10 days. She may stop the antibiotic at 7 days if her symptoms have completely resolved. Continue , ibuprofen or acetaminophen as needed for pain. Cold packs to the area. Warning signs and symptoms that would require re-evaluation or emergency evaluation reviewed. Patient verbalized understanding and acceptance of this plan and has no further questions at this time. Martha Mckeon APRN, C.N.P., M.S.Martha Mcconnell APRN, C.N.P., M.S.N. 07/05/24 1833 CASTING MACHINE KEYBOARD OPERATOR documented in this encounter Plan of Treatment Not on file documented as of this encounter Visit Diagnoses Diagnosis Mastitis- Primary documented in this encounter Additional Health Concerns Assessment Noted Time PHQ-9 Depression Total Score: 0 05/24/20 22 10:00 AM LINECASTING MACHINE KEYBOARD OPERATOR documented as of this encounter Care Teams Backhaul Driver Relationship Specialty Start Date End Date Sha Jasso M.D. [address] [facility] [place] [phone] PCP - General 11/04/23 documented as of this encounter
[2024-07-13 08:55] LABS: Ur HCG Qualitative* Negative (Negative)
[2024-07-13] MEDS: LACTATED RINGERS 500 ML 500 ML 100 ML IV ×3 (09:15→14:15)
[2024-07-13] MEDS: SODIUM CHLORIDE 0.9 % (FLUSH) 10 ML SYRINGE IVF (09:20)
[2024-07-13] MEDS: OXYMETAZOLINE 0.05% NASAL SPRAY 2 SPRAY NOSTRIL-B (10:40)
[2024-07-13] MEDS: COCAINE HCL 4 % 4 ML SOLUTION NOSTRIL-B (11:09)
[2024-07-13] MEDS: BUPIVACAINE 0.5%/EPINEPHRINE 0.9 MG (30.9 ML) INJECTION (11:09)
[2024-07-13] MEDS: AYR SALINE NASAL GEL 1 APPLIC NOSTRIL-B (11:12)
[2024-07-13] MEDS: MUPIROCIN 1 GM PACKET 1 APPLIC TOPICAL (11:37)
--- NOTE | 2024-07-13 11:54 | W.ANESCHARGE ---
Anesthesia Charges Start Date/Time Anesthesia Start Date: 07/13/24 Anesthesia Start Time: 10:52 Stop Date/Time Anesthesia Stop Date: 07/13/24 Anesthesia Stop Time: 11:54 Coding CPT Codes CPT Codes: ANESTH NOSE/SINUS SURGERY - 07997 ([id number]) P1 - NORMAL HEALTHY PATIENT, QK - SEO STRATEGIST 2-4 CNCRNT ANES PROC
--- NOTE | 2024-07-13 11:56 | W.ANESCHARGE ---
Anesthesia Charges Start Date/Time Anesthesia Start Date: 07/13/24 Anesthesia Start Time: 10:52 Stop Date/Time Anesthesia Stop Date: 07/13/24 Anesthesia Stop Time: 11:54 Coding CPT Codes CPT Codes: ANESTH NOSE/SINUS SURGERY - 32761 ([id number]) QK - WAFER PRODUCTION LEAD WORKER 2-4 CNCRNT ANES PROC, QX - NIGHT ORDER SELECTOR SVC W/ MD MED DIRECTION, P1 - NORMAL HEALTHY PATIENT
--- NOTE | 2024-07-13 12:23 | SUR.PHASEI ---
Patient having some nausea, ADVERTISING DISPATCH CLERKS SUPERVISOR giving zofran
--- NOTE | 2024-07-13 12:24 | SUR.PHASEI ---
Patient meets anesthesia requirements to discharge from PACU.
--- NOTE | 2024-07-13 12:44 | W.PM.ENTPROC ---
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 The image guidance system was registered. Insert 0 degree endoscopy was also utilized throughout the procedure. The nose was decongested and injected. A right hemitransfixion incision was made. Left anterior and posterior tunnels were created in a vertical incision made through the cartilage anterior to the deflections. The posterior deflections were resected by cutting above below the angled scissors. A large piece of cartilage and bone was trimmed and returned to intraseptal space. The hemitransfixion was closed with 2 4-0 chromic sutures A stab incision was made in the anterior of the right inferior turbinate a tunnel created with a [place] dissector. The teofilo bone was outfractured and a conservative anterior submucous resection performed. The Coblation was used to cauterize intramurally along the inferior 10%. The inferior quarter the uncinate process was taken down exposing natural os the maxillary sinus. This was enlarged to a 7 mm diameter. A very large amount of inspissated mucus and polypoid mucosa was removed from the sinus. The sinus appeared to be clear at the end of the procedure. The ethmoid bulla was taken down and dissection carried out an anterior to posterior direction and performing a conservative anterior ethmoidectomy. Again there was a moderate amount of polypoid tissue removed. All specimens were sent to pathology. Silastic stents were secured on is side the septum and Merocel packing placed in the middle meatus on each side. The patient procedure well was taken recovery satisfactory condition. Blood loss was 20 mL. Surgeon: Alpesh Senior MD
[2024-07-13] MEDS: METOCLOPRAMIDE HCL 5 MG/ML INJ 10 MG IVP (12:49)
--- NOTE | 2024-07-13 13:14 | SUR.PHASEII ---
patient had a 100cc bloody emesis. Was able to visualize the back of her throat and no active bleeding noted. Dr. Senior here to see the patient. He also checked for active bleeding and noted none. Patient states that her nausea is better now. Nasal dressing changed x1. Patient wanting to hold off on pain medications. Resting in bed at this time.
[2024-07-13] MEDS: IBUPROFEN 200 MG TABLET PO (13:50)
--- NOTE | 2024-07-13 15:14 | SUR.PHASEII ---
changed nasal dressing x2 with scant amount of bloody drainage. Pt states she felt better, no nausea after a nap. Pain tolerable. Reviewed d/c instructions with pt and her mom. Per Dr. Senior instructed pt to complete her home antibiotic at home then switch to the prescribed antibiotic. Wheelchair out to car with Mom.
== END 2024-07-13 14:56 | disposition home or self-care (01) ==
PROVIDERS: PCP Registered Nurse; Visit Provider Otolaryngology
PROC: (CPT 31231; principal; 2024-07-13 10:00)
DX: J34.2 Deviated nasal septum (principal); J32.0 Chronic maxillary sinusitis; J32.2 Chronic ethmoidal sinusitis; J34.3 Hypertrophy of nasal turbinates; R51.9 Headache, unspecified
CPT/HCPCS: 31254; 31267; 30520; 30140; 00160; 81025; 88305; A9270; J0330; J1100; J2250; J2405; J2704; J2765; J3010; J7120